=== PATIENT | male | born 1995 | race American Indian/Alaskan Native ===

== ENCOUNTER 2019-06-04 15:25 | Emergency (ER) | payer SELFPAY ==
[2019-06-04] MEDS ORDERED: NACL 0.9% IR ONE (15:46)
[2019-06-04] MEDS ORDERED: IBUPROFEN PO ONE (15:46)
--- NOTE | 2019-06-04 15:48 | Event Note ---
ED Screening Note ED Screening Note: xr left thumb smashed in car door ro fx pos subungal This initial assessment/diagnostic orders/clinical plan/treatment(s) is/are subject to change based on patients health status, clinical progression and re- assessment by fellow clinical providers in the ED. Further treatment and workup at subsequent clinical providers discretion. Patient/guardian urged not to elope from the ED as their condition may be serious if not clinically assessed and managed. Initial orders include: xray will need subungal evalucated
[2019-06-04 15:49] VITALS: BP 120/61
--- NOTE | 2019-06-04 16:16 | XRay Report ---
LEFT THUMB 3 VIEWS INDICATION / CLINICAL INFORMATION: lt thumb pain . Left thumb got slammed in car door 3 days ago COMPARISON: None available. FINDINGS: BONES / JOINT(S): No acute fracture or subluxation. No significant arthritis. SOFT TISSUES: No significant abnormality. ADDITIONAL FINDINGS: None. Signer Name: Addison Noe MD Signed: 06/04/2019 4:11 PM Workstation Name: [id number]
[2019-06-04] MEDS ORDERED: ULTRAM PO ONE (17:04)
--- NOTE | 2019-06-04 17:45 | Emergency Department Report ---
ED Extremity Problem HPI - General Chief complaint: Extremity Injury, Upper Stated complaint: FINGER INJURY Time Seen by Provider: 06/04/19 15:45 Source: patient Mode of arrival: Ambulatory Limitations: No Limitations - History of Present Illness Initial comments: Patient is a 23-year-old male who closed his left thumb into a car door 2 days ago. Patient's had intense pain at the tip of the thumb. There is a blood collection underneath the nail which is not evaluated at this time. Patient states the pain is 9 out of 10 as aching and throbbing. Patient has no other injuries at this time. - Related Data Previous Rx's Medication Instructions Recorded Last Taken Type Ibuprofen [Motrin 600 MG tab] 600 mg PO Q8H PRN #20 tablet 06/04/19 Unknown Rx traMADol [Ultram] 50 mg PO Q6HR PRN #12 tablet 06/04/19 Unknown Rx Allergies Allergy/AdvReac Type Severity Reaction Status Date / Time No Known Allergies Allergy Unverified 06/04/19 15:38 ED Review of Systems ROS: Stated complaint: FINGER INJURY Other details as noted in HPI Comment: All other systems reviewed and negative ED Past Medical Hx - Past Medical History Previous Medical History?: No - Surgical History Past Surgical History?: No - Social History Smoking Status: Never Smoker Substance Use Type: None - Medications Home Medications: Home Medications Medication Instructions Recorded Confirmed Last Taken Type Ibuprofen [Motrin 600 MG tab] 600 mg PO Q8H PRN #20 tablet 06/04/19 Unknown Rx traMADol [Ultram] 50 mg PO Q6HR PRN #12 tablet 06/04/19 Unknown Rx ED Physical Exam - General Limitations: No Limitations General appearance: alert, in no apparent distress - Head Head exam: Present: atraumatic, normocephalic - Eye Eye exam: Present: normal appearance - Neck Neck exam: Present: normal inspection - Respiratory Respiratory exam: Absent: respiratory distress - Extremities Exam Extremities exam: Present: other (patient was swelling to the DIP joint proximally on his left thumb. Patient with subungual hematoma. There is tenderness to palpation.) ED Course Vital Signs 06/04/19 15:48 Temperature 98.3 F Pulse Rate 79 Respiratory 18 Rate Blood Pressure 120/61 O2 Sat by Pulse 100 Oximetry - Procedure Description Procedures done: Patient's left thumb was cleaned with Betadine 18-gauge needle was used to make a small hole in the middle portion of the nail. There was fresh blood expressed. Wound was dressed. Patient does have some relief after pressures been relieved. Patient tolerated procedure well. ED Medical Decision Making - Radiology Data Radiology results: report reviewed - Medical Decision Making Nail trephination performed and the patient does have some relief. patient be discharged home. Critical care attestation.: If time is entered above; I have spent that time in minutes in the direct care of this critically ill patient, excluding procedure time. ED Disposition Clinical Impression: Subungual hematoma Disposition: DC-01 TO HOME OR SELFCARE Is pt being admited?: No Does the pt Need Aspirin: No Condition: Stable Instructions: Subungual Hematoma (ED) Referrals: PRIMARY CARE, [Primary Care Provider] - 3-5 Days Time of Disposition: 17:45
== END 2019-06-04 18:06 | disposition home or self-care (01) ==
LOC: ED 15:25
DX: S60.012A Contusion of left thumb without damage to nail, initial encounter (principal); W20.8XXA Other cause of strike by thrown, projected or falling object, initial encounter; Y93.89 Activity, other specified; Y92.89 Other specified places as the place of occurrence of the external cause; Y99.8 Other external cause status